=== PATIENT | female | born 1990 | race Caucasian/White ===

== ENCOUNTER 2024-03-08 20:14 | Emergency (ER) | payer OTHER ==
[2024-03-08 20:21] VITALS: BP 107/78; PULSE 79; RESP 18; TEMP 97.7; BMI 28.7
[2024-03-08] MEDS ORDERED: ACETAMINOPHEN 500 MG TABLET (FP) ONE (21:49)
[2024-03-08] MEDS: ACETAMINOPHEN 500 MG TABLET (FP) PO ONE (21:50)
== END 2024-03-08 22:27 | disposition home or self-care (01) ==
LOC: JERFT 20:14
DX: M54.50 Low back pain, unspecified (principal); V49.09XA Driver injured in collision with other motor vehicles in nontraffic accident, initial encounter
CPT/HCPCS: 99283-25